=== PATIENT | female | born 1980 | race African-American/Black ===

== ENCOUNTER 2021-09-01 06:36 | Inpatient (IN) ==
[2021-09-01] MEDS ORDERED: D5 1/2 NS 1,000 ML 1,000 ML IV ONE (07:00)
[2021-09-01] MEDS ORDERED: BETADINE SOLN ONE (07:00)
[2021-09-01] MEDS ORDERED: PITOCIN ONE (07:00)
[2021-09-01] MEDS ORDERED: D5 LR + PITOCIN 10 UNITS/L 10 UNITS/1,000 ML BAG IV ONE (07:01)
[2021-09-01] MEDS ORDERED: D5 LR + PITOCIN 10 UNITS/L 10 UNITS/1,000 ML BAG IV PRN (07:20)
[2021-09-01] MEDS ORDERED: REGLAN INJ 10 MG VIAL IVP PRN (07:33)
[2021-09-01] MEDS ORDERED: PITOCIN IVP ONE (07:33)
[2021-09-01] MEDS ORDERED: PHENERGAN INJ 25 MG IM PRN ×2 (07:33→14:43)
[2021-09-01] MEDS ORDERED: STADOL INJ IVP PRN (07:41)
[2021-09-01 07:50] LABS: BILIRUBIN,URINE NEGATIVE (NEGATIVE); BLOOD/HEMOGLOBIN,URINE NEGATIVE (NEGATIVE); GLUCOSE, URINE NEGATIVE (NEGATIVE); KETONES,URINE NEGATIVE (NEGATIVE); LEUKOCYTE ESTERASE ,URINE 1+ (NEGATIVE); NITRITES,URINE NEGATIVE (NEGATIVE); PH,URINE 6.5 (5.0 - 8.0); PROTEIN,URINE 2+ (NEGATIVE); UROBILINOGEN,URINE 2+ (NORMAL)
[2021-09-01 08:00] LABS: APPEARANCE,URINE SLIGHTLY HAZY (CLEAR); COLOR,URINE YELLOW (YELLOW)
[2021-09-01] MEDS ORDERED: D5 1/2 NS 1,000 ML 1,000 ML IV SCH (08:00)
[2021-09-01 08:01] LABS: BACTERIA,URINE TRACE /HPF (NEGATIVE); MUCUS,URINE MODERATE /HPF (NEGATIVE); RBC,URINE 0-2 /HPF (0-3); SQUAMOUS EPITHELIAL CELL,UR MODERATE /HPF (NEGATIVE)
[2021-09-01 08:26] LABS: BASOPHILS % (AUTO) 0.5 % (0.2-1.0); EOSINOPHILS # (AUTO) 0.3 x10^3/uL (0.0-0.2); EOSINOPHILS % (AUTO) 3.9 % (0.9-2.9); HEMATOCRIT 29.2 % (36.0-47.0); HEMOGLOBIN 9.5 g/dL (12.0-16.0); LYMPHOCYTES # (AUTO) 1.4 X10^3/uL (1.3-2.9); LYMPHOCYTES % (AUTO) 16.7 % (21.0-51.0); MEAN CORPUSCULAR HEMOGLOBIN 27.1 pg (27.0-34.0); MEAN CORPUSCULAR HGB CONC 32.6 g/dL (33.0-35.0); MEAN CORPUSCULAR VOLUME 83.1 fL (80.0-100.0); MEAN PLATELET VOLUME 8.4 fL (7.4-11.0); MONOCYTES # (AUTO) 0.5 x10^3/uL (0.3-0.8); MONOCYTES % (AUTO) 6.3 % (0.0-13.0); NEUTROPHILS # (AUTO) 6.1 x10^3/uL (2.2-4.8); NEUTROPHILS % (AUTO) 72.6 % (42.0-75.0); PLATELET COUNT 231 X10^3/uL (150.0-450.0); RED BLOOD COUNT 3.52 X10^6/uL (3.5-5.4); RED CELL DISTRIBUTION WIDTH 14.1 % (11.6-16.5); WHITE BLOOD COUNT 8.4 X10^3/uL (3.6-10.0)
[2021-09-01 08:33] LABS: BLOOD UREA NITROGEN 5 mg/dL (7-18); CALCIUM 8.2 mg/dL (8.5-10.1); CARBON DIOXIDE 22.7 mmol/L (21-32); CHLORIDE 106 mmol/L (98-107); CREATININE 0.59 mg/dL (0.55-1.02); SODIUM 139 mmol/L (136-145); eGFR NON BLACK RACES > 60 (>60)
[2021-09-01] MEDS ORDERED: STADOL INJ ONE (09:59)
[2021-09-01] MEDS ORDERED: NAROPIN EPIDURAL 0.2% 100 ML ONE (12:24)
[2021-09-01] MEDS ORDERED: FENTANYL VIAL INJ 100 mcg ONE ×2 (12:24→12:25)
[2021-09-01] MEDS ORDERED: LR 1,000 ML IV 1,000 ML IV ONE (12:26)
[2021-09-01] MEDS ORDERED: MOTRIN TAB 800 MG PO PRN ×2 (14:43→15:34)
[2021-09-01] MEDS ORDERED: D5 1/2 NS 1,000 ML 1,000 ML with PITOCIN 20 UNITS IV SCH ×2 (15:00)
[2021-09-01] MEDS ORDERED: D5 1/2 NS 1,000 mL + PITOCIN 20 UNITS/L IV 20 UNITS/1,000 ML BAG IV ONE (15:18)
[2021-09-01] MEDS ORDERED: DERMOPLAST PAIN RELIEF SPRAY TOP PRN (15:34)
[2021-09-01] MEDS ORDERED: AMBIEN PO PRN (15:34)
[2021-09-01] MEDS ORDERED: MILK OF MAGNESIA PO PRN (15:34)
[2021-09-02 06:22] LABS: HEMATOCRIT 28.2 % (36.0-47.0); HEMOGLOBIN 9.4 g/dL (12.0-16.0)
[2021-09-02] MEDS ORDERED: NS 100 ML IV 100 ML with VENOFER 400 MG IV NR ×2 (08:55)
[2021-09-02] MEDS ORDERED: PRENATAL PLUS PO SCH (09:00)
[2021-09-02 13:57] VITALS: BP 124/73
== END 2021-09-02 17:05 | disposition home or self-care (01) | DRG 807 ==
LOC: NUR 06:36 → LD 07:01 → MED/SURG 15:35
PROVIDERS: ADMIT Obstetrics & Gynecology Obstetrics; ATTEND Obstetrics & Gynecology Obstetrics

== ENCOUNTER 2022-12-30 06:31 | Inpatient (IN) ==
[2022-12-30] MEDS ORDERED: PITOCIN ONE (06:47)
[2022-12-30] MEDS ORDERED: BETADINE SOLN ONE (06:47)
[2022-12-30] MEDS ORDERED: D5 1/2 NS 1,000 ML 1,000 ML IV ONE (06:47)
[2022-12-30] MEDS ORDERED: D5 LR + PITOCIN 10 UNITS/L 10 UNITS/1,000 ML BAG IV ONE (06:47)
[2022-12-30] MEDS ORDERED: D5 1/2 NS 1,000 mL + PITOCIN 20 UNITS/L IV 20 UNITS/1,000 ML BAG IV ONE (06:47)
[2022-12-30] MEDS ORDERED: REGLAN INJ 10 MG VIAL ONE (07:06)
[2022-12-30] MEDS ORDERED: D5 LR + PITOCIN 10 UNITS/L 10 UNITS/1,000 ML BAG IV PRN (07:15)
[2022-12-30] MEDS ORDERED: PITOCIN IVP ONE (07:19)
[2022-12-30] MEDS ORDERED: REGLAN INJ 10 MG VIAL IVP PRN (07:19)
[2022-12-30] MEDS ORDERED: STADOL INJ IVP PRN (07:22)
[2022-12-30 07:48] LABS: BASOPHILS % (AUTO) 0.3 % (0.2-1.0); EOSINOPHILS # (AUTO) 0.3 x10^3/uL (0.0-0.2); EOSINOPHILS % (AUTO) 4.2 % (0.9-2.9); HEMOGLOBIN 9.5 g/dL (12.0-16.0); LYMPHOCYTES # (AUTO) 1.4 X10^3/uL (1.3-2.9); LYMPHOCYTES % (AUTO) 19.6 % (21.0-51.0); MEAN CORPUSCULAR HEMOGLOBIN 27.3 pg (27.0-34.0); MEAN CORPUSCULAR HGB CONC 32.6 g/dL (33.0-35.0); MEAN CORPUSCULAR VOLUME 83.5 fL (80.0-100.0); MEAN PLATELET VOLUME 9.2 fL (7.4-11.0); MONOCYTES # (AUTO) 0.5 x10^3/uL (0.3-0.8); MONOCYTES % (AUTO) 7.5 % (0.0-13.0); NEUTROPHILS % (AUTO) 68.4 % (42.0-75.0); RED BLOOD COUNT 3.47 X10^6/uL (3.5-5.4); RED CELL DISTRIBUTION WIDTH 14.4 % (11.6-16.5); WHITE BLOOD COUNT 7.2 X10^3/uL (3.6-10.0)
[2022-12-30 07:51] LABS: BILIRUBIN,URINE 2+ (NEGATIVE); BLOOD/HEMOGLOBIN,URINE 1+ (NEGATIVE); GLUCOSE, URINE NEGATIVE (NEGATIVE); KETONES,URINE 4+ (NEGATIVE); LEUKOCYTE ESTERASE ,URINE 1+ (NEGATIVE); NITRITES,URINE NEGATIVE (NEGATIVE); PH,URINE 6.5 (5.0 - 8.0); PROTEIN,URINE 3+ (NEGATIVE); UROBILINOGEN,URINE 4+ (NORMAL)
[2022-12-30 07:52] LABS: BLOOD UREA NITROGEN 7 mg/dL (7-18); CALCIUM 8.5 mg/dL (8.5-10.1); CHLORIDE 102 mmol/L (98-107); CREATININE 0.63 mg/dL (0.55-1.02); SODIUM 137 mmol/L (136-145); eGFR NON BLACK RACES > 60 (>60)
[2022-12-30 07:59] LABS: APPEARANCE,URINE HAZY (CLEAR)
[2022-12-30] MEDS ORDERED: D5 1/2 NS 1,000 ML 1,000 ML IV SCH (08:00)
[2022-12-30 08:01] LABS: COLOR,URINE ORANGE (YELLOW)
[2022-12-30] MEDS ORDERED: K-DUR TAB 20 MEQ PO ONE (08:03)
[2022-12-30] MEDS: K-DUR TAB 20 MEQ PO SCH ×2 (08:06→20:16)
[2022-12-30 08:08] LABS: BACTERIA,URINE TRACE /HPF (NEGATIVE); SQUAMOUS EPITHELIAL CELL,UR MANY /HPF (NEGATIVE)
[2022-12-30] MEDS ORDERED: LR 1,000 ML IV 1,000 ML IV ONE (08:11)
[2022-12-30] MEDS ORDERED: FENTANYL VIAL INJ 100 mcg ONE (08:12)
[2022-12-30] MEDS ORDERED: NAROPIN EPIDURAL 0.2% 100 ML ONE (08:13)
[2022-12-30] MEDS ORDERED: STADOL INJ ONE (11:27)
[2022-12-30] MEDS ORDERED: ZOFRAN INJ 4 MG VIAL ONE (11:30)
[2022-12-30] MEDS ORDERED: XYLOCAINE 1 % (PLAIN) ONE (12:18)
[2022-12-30] MEDS ORDERED: XYLOCAINE 2 % (PLAIN) ONE (13:20)
[2022-12-30] MEDS ORDERED: MOTRIN TAB 800 MG PO PRN ×2 (14:01→14:40)
[2022-12-30] MEDS ORDERED: DERMOPLAST PAIN RELIEF SPRAY TOP PRN (14:40)
[2022-12-30] MEDS ORDERED: MILK OF MAGNESIA PO PRN (14:40)
[2022-12-30] MEDS ORDERED: AMBIEN PO PRN (14:40)
[2022-12-30] MEDS ORDERED: D5 1/2 NS 1,000 ML 1,000 ML with PITOCIN 20 UNITS IV SCH ×2 (15:00)
[2022-12-31] MEDS: K-DUR TAB 20 MEQ PO SCH (08:10)
[2022-12-31] MEDS ORDERED: PRENATAL PLUS PO SCH (09:00)
[2022-12-31 13:38] VITALS: BP 148/95
== END 2022-12-31 15:54 | disposition home or self-care (01) | DRG 807 ==
LOC: LD 06:31 → MED/SURG 14:41
PROVIDERS: ADMIT Obstetrics & Gynecology Obstetrics; ATTEND Obstetrics & Gynecology Obstetrics
DX: Z3A.39 39 weeks gestation of pregnancy; O80 Encounter for full-term uncomplicated delivery; Z37.0 Single live birth